=== PATIENT | male | born 1995 | race Caucasian/White ===

== ENCOUNTER 2018-11-02 07:53 | Inpatient (IN) | payer BC ==
[2018-11-02] MEDS ORDERED: ONDANSETRON 4 MG/2 ML VIAL ONE ×2 (08:11→10:35)
[2018-11-02] MEDS ORDERED: ONDANSETRON 4 MG/2 ML VIAL IVP ONE ×2 (08:13→10:44)
[2018-11-02] MEDS ORDERED: NS 1,000 ML IV ONE ×3 (08:22→09:50)
[2018-11-02 08:34] LABS: PLATELET COUNT 334 10^3/uL (150-400)
--- NOTE | 2018-11-02 08:35 | EDPHY ---
H & P Time Seen by Provider: 11/02/18 08:22 HPI/ROS: Chief complaint. Nausea and vomiting, elevated blood sugar HPI. Patient is 23-year-old male insulin-dependent diabetic began to have nausea vomiting last night. Unable to keep fluids down. He thought it was initially acid reflux. He does have sick contacts of his girlfriend over the weekend. Patient's blood sugar last night was 400. He has adjusted his insulin pump. He has crampy abdominal pain that comes and goes through the night. Crampy abdominal pain was better after drinking Sprite. No diarrhea. No fever. No chest discomfort or trouble breathing ROS 10 systems were reviewed and negative with the exception of the elements mentioned in the history of present illness Past Medical/Surgical History: Insulin-dependent diabetes, V-tach with ablation Social History: Single, nonsmoker, no alcohol Smoking Status: Former smoker Physical Exam: General Appearance: Alert well-developed male mild distress. Vital signs are stable Eyes: Pupils equal and round no pallor or injection. ENT, mucous membranes are dry. Pharynx without injection Respiratory: There are no retractions, lungs are clear to auscultation. Cardiovascular: Regular rate and rhythm. Gastrointestinal: Abdomen is soft and nontender, no masses, bowel sounds normal. Neurological: Awake and alert, sensory and motor exams grossly normal. Skin: Warm and dry, no rashes. Musculoskeletal: Neck is supple nontender. Extremities symmetrical, full range of motion. Psychiatric: Patient is oriented X 3, there is no agitation. Constitutional: Initial Vital Signs Temperature (C) 36.5 C 11/02/18 07:56 Heart Rate 87 11/02/18 07:56 Respiratory Rate 18 11/02/18 07:56 Blood Pressure 127/79 H 11/02/18 07:56 O2 Sat (%) 100 11/02/18 07:56 O2 Delivery Mode Room Air Allergies/Adverse Reactions: No Known Allergies Allergy (Verified 11/02/18 07:55) Home Medications: Medication Instructions Recorded Insulin Pump, Patient Own 1 ea MISC AD 09/07/15 Esomeprazole Magnesium [Nexium 20 mg PO DAILY PRN 11/02/18 24Hr] Herbals/Supplements -Info Only 1 ea PO DAILY 11/02/18 Insulin Glargine [Lantus] 24 unit SC AD 11/02/18 Multivitamins [Multivitamin (*)] 1 each PO DAILY 11/02/18 Medical Decision Making - Diagnostics EKG Interpretation: EKG interpreted by me shows normal sinus rhythm normal interval and axis. QRS is normal there is no significant ST elevation or depression. No arrhythmia. The rate is 88 Imaging Results: Imaging Impressions Chest X-Ray 11/02/18 10:42 Impression: Clear lungs. Normal portable chest. Procedures: IV normal saline. DKA protocol. Zofran nausea ED Course/Re-evaluation: Serial evaluations patient has blood sugar continues to be high. Initially we left him on his pump and let the patient do some adjustments to his insulin. However both his beta hydroxybutyrate and blood sugar elevated. I believe this is early DKA. I consulted discussed the case with Dr. Kelley, hospitalist, who agrees to the admission Patient also had an episode of severe arm and back pain. Etiology of this is unclear. Chest x-ray and EKG were unremarkable. Possible rhabdomyolysis Differential Diagnosis: Vomiting illness with early DKA. - Data Points Laboratory Results: Laboratory Results 11/02/18 08:10 11/02/18 10:25 11/02/18 11/02/18 11/02/18 10:59 10:25 10:25 WBC RBC Hgb POC Hgb 16.7 gm/dL gm/dL (13.7-17.5) Hct POC Hct 49 % % (40-51) MCV MCH MCHC RDW Plt Count MPV Neut % (Auto) Lymph % (Auto) [place] % (Auto) Eos % (Auto) Baso % (Auto) Nucleat RBC Rel Count Absolute Neuts (auto) Absolute Lymphs (auto) Absolute Monos (auto) Absolute Eos (auto) Absolute Basos (auto) Absolute Nucleated RBC Immature Gran % Immature Gran # Puncture Site VENOUS Patient Temperature 37.0 DEGREES DEGREES VBG pH 7.38 (7.31-7.42) VBG HCO3 18 mEQ/L L mEQ/L (22-26) VBG Total CO2 19 mEq/L L mEq/L (21-27) VBG O2 Saturation 98 % H % (65-75) VBG Base Excess -5.7 mEq/L L mEq/L (-2.5-2.5) Mixed VBG pCO2 31 mmHg L mmHg (40-44) Mixed VBG pO2 132 mmHG H mmHG (35-40) POC Sodium 136 mEq/L mEq/L (135-145) Sodium 136 mEq/L mEq/L (135-145) POC Potassium 4.6 mEq/L mEq/L (3.3-5.0) Potassium 4.6 mEq/L mEq/L (3.5-5.2) POC Chloride 102 mEq/L mEq/L (97-110) Chloride 102 mEq/L mEq/L (97-110) Carbon Dioxide 18 mEq/l L mEq/l (22-31) POC Total CO2 16 mEq/L L mEq/L (22-31) Anion Gap 16 mEq/L H mEq/L (6-14) POC BUN 21 mg/dL mg/dL (7-23) BUN 20 mg/dL mg/dL (7-23) Creatinine 0.9 mg/dL mg/dL (0.7-1.3) POC Creatinine 0.9 mg/dL mg/dL (0.7-1.3) Estimated GFR > 60 Glucose 339 mg/dL H mg/dL (70-100) POC Glucose 404 mg/dL H mg/dL (70-100) Calcium 8.4 mg/dL L mg/dL (8.5-10.4) Creatine Kinase 207 IU/L IU/L (0-224) Beta-Hydroxybutyrate 4.27 mmol/L H mmol/L (0.02-0.27) 11/02/18 11/02/18 11/02/18 09:23 09:20 08:21 WBC RBC Hgb POC Hgb 16.3 gm/dL gm/dL 19.7 gm/dL H gm/dL (13.7-17.5) (13.7-17.5) Hct POC Hct 48 % % 58 % H % (40-51) (40-51) MCV MCH MCHC RDW Plt Count MPV Neut % (Auto) Lymph % (Auto) [place] % (Auto) Eos % (Auto) Baso % (Auto) Nucleat RBC Rel Count Absolute Neuts (auto) Absolute Lymphs (auto) Absolute Monos (auto) Absolute Eos (auto) Absolute Basos (auto) Absolute Nucleated RBC Immature Gran % Immature Gran # Puncture Site VENOUS Patient Temperature 37.0 DEGREES DEGREES VBG pH 7.39 (7.31-7.42) VBG HCO3 21 mEQ/L L mEQ/L (22-26) VBG Total CO2 22 mEq/L mEq/L (21-27) VBG O2 Saturation 99 % H % (65-75) VBG Base Excess -3.0 mEq/L L mEq/L (-2.5-2.5) Mixed VBG pCO2 36 mmHg L mmHg (40-44) Mixed VBG pO2 138 mmHG H mmHG (35-40) POC Sodium 139 mEq/L mEq/L 139 mEq/L mEq/L (135-145) (135-145) Sodium POC Potassium 4.2 mEq/L mEq/L 3.9 mEq/L mEq/L (3.3-5.0) (3.3-5.0) Potassium POC Chloride 101 mEq/L mEq/L 99 mEq/L mEq/L (97-110) (97-110) Chloride Carbon Dioxide POC Total CO2 23 mEq/L mEq/L 22 mEq/L mEq/L (22-31) (22-31) Anion Gap POC BUN 20 mg/dL mg/dL 21 mg/dL mg/dL (7-23) (7-23) BUN Creatinine POC Creatinine 0.9 mg/dL mg/dL 1.0 mg/dL mg/dL (0.7-1.3) (0.7-1.3) Estimated GFR Glucose POC Glucose 335 mg/dL H mg/dL 389 mg/dL H mg/dL (70-100) (70-100) Calcium Creatine Kinase Beta-Hydroxybutyrate 11/02/18 11/02/18 11/02/18 08:10 08:10 08:10 WBC 14.13 10^3/uL H 10^3/uL (3.80-9.50) RBC 6.15 10^6/uL 10^6/uL (4.40-6.38) Hgb 18.8 g/dL H g/dL (13.7-17.5) POC Hgb Hct 54.9 % H % (40.0-51.0) POC Hct MCV 89.3 fL fL (81.5-99.8) MCH 30.6 pg pg (27.9-34.1) MCHC 34.2 g/dL g/dL (32.4-36.7) RDW 11.8 % % (11.5-15.2) Plt Count 334 10^3/uL 10^3/uL (150-400) MPV 9.5 fL fL (8.7-11.7) Neut % (Auto) 87.5 % H % (39.3-74.2) Lymph % (Auto) 5.2 % L % (15.0-45.0) [place] % (Auto) 5.8 % % (4.5-13.0) Eos % (Auto) 0.8 % % (0.6-7.6) Baso % (Auto) 0.3 % % (0.3-1.7) Nucleat RBC Rel Count 0.0 % % (0.0-0.2) Absolute Neuts (auto) 12.37 10^3/uL H 10^3/uL (1.70-6.50) Absolute Lymphs (auto) 0.74 10^3/uL L 10^3/uL (1.00-3.00) Absolute Monos (auto) 0.82 10^3/uL H 10^3/uL (0.30-0.80) Absolute Eos (auto) 0.11 10^3/uL 10^3/uL (0.03-0.40) Absolute Basos (auto) 0.04 10^3/uL 10^3/uL (0.02-0.10) Absolute Nucleated RBC 0.00 10^3/uL 10^3/uL (0-0.01) Immature Gran % 0.4 % % (0.0-1.1) Immature Gran # 0.05 10^3/uL 10^3/uL (0.00-0.10) Puncture Site VENOUS Patient Temperature 37.0 DEGREES DEGREES VBG pH 7.45 H (7.31-7.42) VBG HCO3 22 mEQ/L mEQ/L (22-26) VBG Total CO2 23 mEq/L mEq/L (21-27) VBG O2 Saturation 89 % H % (65-75) VBG Base Excess -0.3 mEq/L mEq/L (-2.5-2.5) Mixed VBG pCO2 32 mmHg L mmHg (40-44) Mixed VBG pO2 55 mmHG H mmHG (35-40) POC Sodium Sodium POC Potassium Potassium POC Chloride Chloride Carbon Dioxide POC Total CO2 Anion Gap POC BUN BUN Creatinine POC Creatinine Estimated GFR Glucose POC Glucose Calcium Creatine Kinase Beta-Hydroxybutyrate 3.47 mmol/L H mmol/L (0.02-0.27) Medications Given: Discontinued Medications Sodium Chloride (Ns) 1,000 mls @ 1,000 mls/hr IV EDNOW ONE PRN Reason: Protocol Stop: 11/02/18 09:21 Last Admin: 11/02/18 08:31 Dose: 1,000 mls Sodium Chloride (Ns) 1,000 mls @ 1,000 mls/hr IV EDNOW ONE PRN Reason: Protocol Stop: 11/02/18 10:21 Last Admin: 11/02/18 08:48 Dose: 1,000 mls Sodium Chloride (Ns) 1,000 mls @ 0 mls/hr IV ONCE ONE; Wide Open PRN Reason: Protocol Stop: 11/02/18 09:51 Last Admin: 11/02/18 08:45 Dose: 1,000 mls Insulin Human Regular 100 unit / Miscellaneous Medication 1 ea/ Sodium Chloride 101 mls @ 0 mls/hr IV EDNOW ONE; Per Protocol PRN Reason: Protocol Stop: 11/02/18 11:18 Last Admin: 11/02/18 11:57 Dose: 101 mls Morphine Sulfate (Morphine) 6 mg IVP EDNOW ONE Stop: 11/02/18 10:43 Last Admin: 11/02/18 10:51 Dose: 6 mg Ondansetron HCl (Zofran) 4 mg IVP EDNOW ONE Stop: 11/02/18 08:14 Last Admin: 11/02/18 08:16 Dose: 4 mg Ondansetron HCl (Zofran) 4 mg IVP EDNOW ONE Stop: 11/02/18 10:45 Last Admin: 11/02/18 10:51 Dose: 4 mg Point of Care Test Results: Chemistry 11/02/18 11/02/18 11/02/18 10:59 09:23 08:21 POC Sodium 136 mEq/L mEq/L 139 mEq/L mEq/L 139 mEq/L mEq/L (135-145) (135-145) (135-145) POC Potassium 4.6 mEq/L mEq/L 4.2 mEq/L mEq/L 3.9 mEq/L mEq/L (3.3-5.0) (3.3-5.0) (3.3-5.0) POC Chloride 102 mEq/L mEq/L 101 mEq/L mEq/L 99 mEq/L mEq/L (97-110) (97-110) (97-110) POC Total CO2 16 mEq/L L mEq/L 23 mEq/L mEq/L 22 mEq/L mEq/L (22-31) (22-31) (22-31) POC BUN 21 mg/dL mg/dL 20 mg/dL mg/dL 21 mg/dL mg/dL (7-23) (7-23) (7-23) POC Creatinine 0.9 mg/dL mg/dL 0.9 mg/dL mg/dL 1.0 mg/dL mg/dL (0.7-1.3) (0.7-1.3) (0.7-1.3) POC Glucose 404 mg/dL H mg/dL 335 mg/dL H mg/dL 389 mg/dL H mg/dL (70-100) (70-100) (70-100) ISTAT H&H 11/02/18 11/02/18 11/02/18 10:59 09:23 08:21 POC Hgb 16.7 gm/dL gm/dL 16.3 gm/dL gm/dL 19.7 gm/dL H gm/dL (13.7-17.5) (13.7-17.5) (13.7-17.5) POC Hct 49 % % 48 % % 58 % H % (40-51) (40-51) (40-51) Departure - Departure Disposition: [facility] Acute Clinical Impression: Diabetic ketoacidosis Qualifiers: Diabetes mellitus type: type 1 Diabetes mellitus complication detail: without coma Qualified Code(s): E10.10 - Type 1 diabetes mellitus with ketoacidosis without coma Condition: Fair
[2018-11-02 10:52] LABS: CREATINE KINASE 207 IU/L (0-224)
[2018-11-02] MEDS ORDERED: INSULIN REGULAR HUMAN 100 UNIT, COSIGN. REQUIRED 1 EA in NS 100 ML IV ONE (11:17)
[2018-11-02] MEDS ORDERED: ONDANSETRON DISINTEGRATING 4 MG TAB PO PRN (11:57)
[2018-11-02] MEDS ORDERED: ONDANSETRON 4 MG/2 ML VIAL IVP PRN (11:57)
[2018-11-02] MEDS ORDERED: ACETAMINOPHEN 325 MG TAB PO PRN (11:57)
--- NOTE | 2018-11-02 12:58 | PDGENHP ---
History and Physical - Chief Complaint N/V, High BG - History of Present Illness Brando Lowe is a 23 yo M with a PMHx of Type 1 DM on insulin pump who presents to [facility] for elevated blood sugars and n/v. He reports that he had acute onset nausea with multiple episodes of vomiting last evening. He denies any symptoms prior to that including chest pain, SOB, URI symptoms including cough, congestion, sore throat, f/c, edema, d/c. He was unable to keep PO intake down. He checked his BG which was 400. He adjusted his insulin pump but was unable to get it <300. He also reports some crampy abdominal pain that intermittently occurred overnight. He reports muscle aches in the ED as well. History Information - Allergies/Home Medication List Allergies/Adverse Reactions: No Known Allergies Allergy (Verified 11/02/18 07:55) Home Medications: Insulin Pump, Patient Own 1 ea MISC AD 09/07/15 [Last Taken Unknown] Esomeprazole Magnesium [Nexium 24Hr] 20 mg PO DAILY PRN 11/02/18 [Last Taken Unknown] Herbals/Supplements -Info Only 1 ea PO DAILY 11/02/18 [Last Taken Unknown] Insulin Glargine [Lantus] 24 unit SC AD 11/02/18 [Last Taken Unknown] Multivitamins [Multivitamin (*)] 1 each PO DAILY 11/02/18 [Last Taken Unknown] I have personally reviewed and updated: family history, medical history, social history, surgical history - Past Medical History diabetes type 1 - Surgical History Reports: no pertinent surgical hx - Family History Positive for: non-pertinent - Social History Smoking Status: Former smoker Review of Systems Review of Systems: ROS: 10pt was reviewed & negative except for what was stated in HPI & below Physical Exam Physical Exam: Temp Pulse Resp BP Pulse Ox 36.5 C 101 H 20 141/89 H 92 11/02/18 07:56 11/02/18 10:50 11/02/18 10:50 11/02/18 10:50 11/02/18 10:50 Constitutional: no apparent distress Eyes: PERRL Ears, Nose, Mouth, Throat: moist mucous membranes Cardiovascular: regular rate and rhythym Respiratory: no respiratory distress Gastrointestinal: soft, non-tender abdomen Skin: warm Musculoskeletal: full muscle strength Neurologic: AAOx3 Psychiatric: interacting appropriately Lab Data & Imaging Review 11/02/18 08:10 11/02/18 12:54 WBC 14.13 10^3/uL (3.80-9.50) H 11/02/18 08:10 RBC 6.15 10^6/uL (4.40-6.38) 11/02/18 08:10 Hgb 18.8 g/dL (13.7-17.5) H 11/02/18 08:10 POC Hgb 17.3 gm/dL (13.7-17.5) 11/02/18 12:12 Hct 54.9 % (40.0-51.0) H 11/02/18 08:10 POC Hct 51 % (40-51) 11/02/18 12:12 MCV 89.3 fL (81.5-99.8) 11/02/18 08:10 MCH 30.6 pg (27.9-34.1) 11/02/18 08:10 MCHC 34.2 g/dL (32.4-36.7) 11/02/18 08:10 RDW 11.8 % (11.5-15.2) 11/02/18 08:10 Plt Count 334 10^3/uL (150-400) 11/02/18 08:10 MPV 9.5 fL (8.7-11.7) 11/02/18 08:10 Neut % (Auto) 87.5 % (39.3-74.2) H 11/02/18 08:10 Lymph % (Auto) 5.2 % (15.0-45.0) L 11/02/18 08:10 [place] % (Auto) 5.8 % (4.5-13.0) 11/02/18 08:10 Eos % (Auto) 0.8 % (0.6-7.6) 11/02/18 08:10 Baso % (Auto) 0.3 % (0.3-1.7) 11/02/18 08:10 Nucleat RBC Rel Count 0.0 % (0.0-0.2) 11/02/18 08:10 Absolute Neuts (auto) 12.37 10^3/uL (1.70-6.50) H 11/02/18 08:10 Absolute Lymphs (auto) 0.74 10^3/uL (1.00-3.00) L 11/02/18 08:10 Absolute Monos (auto) 0.82 10^3/uL (0.30-0.80) H 11/02/18 08:10 Absolute Eos (auto) 0.11 10^3/uL (0.03-0.40) 11/02/18 08:10 Absolute Basos (auto) 0.04 10^3/uL (0.02-0.10) 11/02/18 08:10 Absolute Nucleated RBC 0.00 10^3/uL (0-0.01) 11/02/18 08:10 Immature Gran % 0.4 % (0.0-1.1) 11/02/18 08:10 Immature Gran # 0.05 10^3/uL (0.00-0.10) 11/02/18 08:10 Puncture Site VENOUS 11/02/18 10:25 Patient Temperature 37.0 DEGREES 11/02/18 10:25 VBG pH 7.38 (7.31-7.42) 11/02/18 10:25 VBG HCO3 18 mEQ/L (22-26) L 11/02/18 10:25 VBG Total CO2 19 mEq/L (21-27) L 11/02/18 10:25 VBG O2 Saturation 98 % (65-75) H 11/02/18 10:25 VBG Base Excess -5.7 mEq/L (-2.5-2.5) L 11/02/18 10:25 Mixed VBG pCO2 31 mmHg (40-44) L 11/02/18 10:25 Mixed VBG pO2 132 mmHG (35-40) H 11/02/18 10:25 POC Sodium 136 mEq/L (135-145) 11/02/18 12:12 Sodium 136 mEq/L (135-145) 11/02/18 10:25 POC Potassium 4.8 mEq/L (3.3-5.0) 11/02/18 12:12 Potassium 4.6 mEq/L (3.5-5.2) 11/02/18 10:25 POC Chloride 102 mEq/L (97-110) 11/02/18 12:12 Chloride 102 mEq/L (97-110) 11/02/18 10:25 Carbon Dioxide 18 mEq/l (22-31) L 11/02/18 10:25 POC Total CO2 17 mEq/L (22-31) L 11/02/18 12:12 Anion Gap 16 mEq/L (6-14) H 11/02/18 10:25 POC BUN 19 mg/dL (7-23) 11/02/18 12:12 BUN 20 mg/dL (7-23) 11/02/18 10:25 Creatinine 0.9 mg/dL (0.7-1.3) 11/02/18 10:25 POC Creatinine 0.9 mg/dL (0.7-1.3) 11/02/18 12:12 Estimated GFR > 60 11/02/18 10:25 Glucose 339 mg/dL (70-100) H 11/02/18 10:25 POC Glucose 440 mg/dL (70-100) H 11/02/18 12:12 Calcium 8.4 mg/dL (8.5-10.4) L 11/02/18 10:25 Creatine Kinase 207 IU/L (0-224) 11/02/18 10:25 Beta-Hydroxybutyrate 4.27 mmol/L (0.02-0.27) H 11/02/18 10:25 Assessment & Plan Assessment: DKA - Presenting with n/v, abdominal pain, BG >400 - On admission, AG 16, BG 404, B-Hydroxybutyrate 4.27, VBG with pH 7.38, Bicarb 18 - S/p 3L IVF in ED and initiated on DKA protocol - Continue to monitor labs, IVF, insulin gtt per DKA protocol - Transition back to insulin pump with basal and bolus dosing when AG closed, BG <200 - NPO for now until able to transition off of Insulin gtt Nausea/Vomiting - In setting of DKA as above - Lipase WNL on admission, abdominal exam benign - Anti-emetics PRN Leukocytosis - WBC 14.1 on admission - DKA as above, no other infectious symptoms noted - Continue to monitor CBC T1DM - DKA management as above - Restart home insulin pump upon resolution of DKA FEN: S/p IVF, IVF per DKA protocol, NPO DVT PPx: Low risk, SCDs Code: FULL Dispo: Admit to ICU for management of DKA
--- NOTE | 2018-11-02 15:10 | CPEKG ---
Test Reason : OPEN Blood Pressure : / mmHG Vent. Rate : 088 BPM Atrial Rate : 089 BPM P-R Int : 130 ms QRS Dur : 087 ms QT Int : 372 ms P-R-T Axes : 074 050 022 degrees QTc Int : 450 ms Sinus rhythm Minimal ST depression, inferior leads Confirmed by Jackie Roche ([id number]) on 11/02/2018 3:09:47 PM Referred By: JACKIE ROCHE Confirmed By:Jackie Roche
[2018-11-02] MEDS ORDERED: RN:ENTER POTASSIUM ICU PROTOCOL ON WORKLIST MISC ONE (16:00)
[2018-11-02] MEDS ORDERED: D50W 25 GM/50 ML SYR IVP PRN ×2 (16:00→17:36)
[2018-11-02] MEDS ORDERED: D10W 1,000 ML IV SCH (16:00)
[2018-11-02] MEDS ORDERED: NS 1,000 ML IV SCH (16:00)
[2018-11-02] MEDS ORDERED: INSULIN REGULAR HUMAN 100 UNIT in NS 100 ML IV SCH (16:00)
[2018-11-02] MEDS ORDERED: INSULIN PUMP, PATIENT OWN 1 EA MISC SCH ×2 (17:45→18:00)
--- NOTE | 2018-11-02 20:56 | PDMN ---
Medical Necessity Medical necessity: Pt meets inpt criteria per MD order and MCG M-130, Diabetes, A-2 days. 23 y/o w/type 1 DM on insulin pump presented to ED w/elevated bl sugars (>400), N/V, abd cramping, and muscle aches, admitted w/DKA w/anion gap 16, B-hydroxybutyrate 4.27. ICU care, NPO, IVF, insulin gtt per DKA protocol, monitor labs, antiemetics for N/V, anticipate>2MN for ongoing management of above.
[2018-11-03] MEDS ORDERED: POTASSIUM CL 20 MEQ TAB PO ONE ×3 (00:45→10:00)
[2018-11-03] MEDS ORDERED: D5W NS 1,000 ML IV SCH (09:00)
[2018-11-03 10:20] VITALS: BP 97/54
--- NOTE | 2018-11-03 19:33 | GDS ---
[f rep st] DISCHARGE SUMMARY CONSULTS: None applicable. PROCEDURE: None applicable. FOLLOWUP: PCP. HOSPITAL COURSE PROBLEM LIST: Diabetic ketoacidosis. Patient presented after acute onset of nausea and vomiting in the setting of hyperglycemia with a blood glucose of 400. On admission, had an anion gap of 18, blood glucose in the 400s, and elevated beta hydroxybutyrate. He was started on DKA prot ocol. Overnight, there was a lapse in his insulin pump, after being transitioned off the insulin dri p. He needed a new cartridge. He was restarted on an insulin drip. This morning, he got his insuli n cartridge from his house. Insulin pump was working appropriately. Basal insulin was increased. T here was resolution of DKA and patient was discharged with followup to PCP. Time spent on discharge was greater than 35 minutes, with greater than 50% of time spent on patient c vic and education. /[id number]/MODL
--- NOTE | 2018-11-03 20:24 | ASMTCMCOM ---
CM Note CM Note Notes: Pt discussed in rounds and met with him. Pt is a 23 year old diabetic admitted with nausea, vomiting and high blood sugar greater 400. Pt is established with an Insulin pump at home and has no needs. Pt will discharge home with his girlfriend. Pts Mother is also a good resource. CM available for needs. Plan: Discharge Home independently. Date Signed: 11/03/2018 08:23 PM Electronically Signed By:Kassandra Beyer
== END 2018-11-03 13:30 | disposition home or self-care (01) | DRG 639 ==
LOC: F2N 13:40
PROVIDERS: ADMIT Internal Medicine; ATTEND Internal Medicine
DX: E10.10 Type 1 diabetes mellitus with ketoacidosis without coma (principal); Z79.4 Long term (current) use of insulin; Z96.41 Presence of insulin pump (external) (internal); Z87.891 Personal history of nicotine dependence
CPT/HCPCS: 82435-PO; 82565-PO; 82947-PO; 82947-QW; 83605-ER; 84132-PO; 84295-PO; 84520-PO; 85014-ER; 96365; 96366; J1815; J2270; J2405

== ENCOUNTER 2018-12-09 19:19 | Observation (INO) | payer BC ==
[2018-12-09] MEDS ORDERED: NS 1,000 ML IV ONE ×2 (19:32→20:33)
--- NOTE | 2018-12-09 19:34 | EDPHY ---
H & P Time Seen by Provider: 12/09/18 19:26 HPI/ROS: Chief complaint. High blood sugar HPI. Patient is 23-year-old male insulin-dependent type 1 with high blood sugar that began yesterday. He had vomiting today and unable to keep fluids down. No fever or illness. He does have an insulin pump which seems to be working but does not seem to be controlling his blood sugars. He has arm and back pain which she has had previously with DKA. He has continued to have nausea and vomiting. ROS 10 systems were reviewed and negative with the exception of the elements mentioned in the history of present illness Past Medical/Surgical History: V-tach with ablation, insulin-dependent diabetes Social History: Single, nonsmoker, no alcohol Smoking Status: Former smoker Physical Exam: General Appearance: Alert well-developed male moderate distress vital signs stable Eyes: Pupils equal and round no pallor or injection. ENT, mucous membranes are dry Respiratory: No retractions. Lungs clear. Mild tachypnea Cardiovascular: Regular rate and rhythm. Gastrointestinal: Abdomen is soft and nontender, no masses, bowel sounds normal. Neurological: Awake and alert, sensory and motor exams grossly normal. Skin: Warm and dry, no rashes. Musculoskeletal: Neck is supple nontender. Extremities symmetrical, full range of motion. Psychiatric: Patient is oriented X 3, there is no agitation. Constitutional: Initial Vital Signs Temperature (C) 36.8 C 12/09/18 19:21 Heart Rate 79 12/09/18 19:21 Respiratory Rate 20 12/09/18 19:21 Blood Pressure 146/77 H 12/09/18 19:21 O2 Sat (%) 100 12/09/18 19:21 O2 Delivery Mode Room Air Allergies/Adverse Reactions: No Known Allergies Allergy (Verified 12/09/18 19:21) Home Medications: Medication Instructions Recorded Insulin Pump, Patient Own 1 ea MISC AD 09/07/15 Esomeprazole Magnesium [Nexium 20 mg PO DAILY PRN 11/02/18 24Hr] Herbals/Supplements -Info Only 1 ea PO DAILY 11/02/18 Insulin Glargine [Lantus] 24 unit SC AD 11/02/18 Multivitamins [Multivitamin (*)] 1 each PO DAILY 11/02/18 Medical Decision Making - Diagnostics EKG Interpretation: EKG interpreted by me shows normal sinus rhythm normal interval and axis. LVH by voltage criteria with ST elevations slightly in anterior septal leads likely normal early repolarization pattern. Heart rate is 84 Imaging Results: One-view chest x-ray interpreted by me is normal Procedures: IV normal saline. Zofran for nausea. Point of care glucose 425. Point of care potassium is 4.7 Venous pH 7.30 DKA protocol. Insulin drip ED Course/Re-evaluation: Serial evaluations patient remained stable. Patient and I discussed treatment plan including recommendation for admission. He expresses understanding and agreement I consulted and discussed the case with , hospitalist, who agrees to the admission Differential Diagnosis: DKA with vomiting and volume depletion. Insulin-dependent diabetic. No source of infection identified. Plan insulin drip and ICU admit - Data Points Laboratory Results: 12/09/18 12/09/18 12/09/18 19:40 19:30 19:30 POC Hgb 19.4 gm/dL H gm/dL (13.7-17.5) POC Hct 57 % H % (40-51) Puncture Site Patient Temperature VBG pH VBG HCO3 VBG Total CO2 VBG O2 Saturation VBG Base Excess Mixed VBG pCO2 Mixed VBG pO2 POC Sodium 134 mEq/L L mEq/L (135-145) Sodium Pending POC Potassium 4.7 mEq/L mEq/L (3.3-5.0) Potassium Pending POC Chloride 98 mEq/L mEq/L (97-110) Chloride Pending Carbon Dioxide Pending POC Total CO2 16 mEq/L L mEq/L (22-31) Anion Gap Pending POC BUN 25 mg/dL H mg/dL (7-23) BUN Pending Creatinine Pending POC Creatinine 1.0 mg/dL mg/dL (0.7-1.3) Estimated GFR Pending Glucose Pending POC Glucose 425 mg/dL H mg/dL (70-100) Calcium Pending Phosphorus 5.0 mg/dL H mg/dL (2.5-4.5) Magnesium 2.3 mg/dL mg/dL (1.6-2.3) Beta-Hydroxybutyrate Pending Pending 12/09/18 19:30 POC Hgb POC Hct Puncture Site VENOUS Patient Temperature 37.0 DEGREES DEGREES VBG pH 7.30 L (7.31-7.42) VBG HCO3 14 mEQ/L L mEQ/L (22-26) VBG Total CO2 15 mEq/L L mEq/L (21-27) VBG O2 Saturation 71 % % (65-75) VBG Base Excess -11.0 mEq/L L mEq/L (-2.5-2.5) Mixed VBG pCO2 29 mmHg L mmHg (40-44) Mixed VBG pO2 42 mmHG H mmHG (35-40) POC Sodium Sodium POC Potassium Potassium POC Chloride Chloride Carbon Dioxide POC Total CO2 Anion Gap POC BUN BUN Creatinine POC Creatinine Estimated GFR Glucose POC Glucose Calcium Phosphorus Magnesium Beta-Hydroxybutyrate Medications Given: Sodium Chloride (Ns) 1,000 mls @ 1,000 mls/hr IV EDNOW ONE PRN Reason: Protocol Stop: 12/09/18 20:31 Last Admin: 12/09/18 19:41 Dose: 1,000 mls Sodium Chloride (Ns) 1,000 mls @ 1,000 mls/hr IV EDNOW ONE PRN Reason: Protocol Stop: 12/09/18 21:32 Last Admin: 12/09/18 19:42 Dose: 1,000 mls Discontinued Medications Ondansetron HCl (Zofran) 4 mg IVP EDNOW ONE Stop: 12/09/18 19:38 Last Admin: 12/09/18 19:41 Dose: 4 mg Point of Care Test Results: Chemistry 12/09/18 19:40 POC Sodium 134 mEq/L L mEq/L (135-145) POC Potassium 4.7 mEq/L mEq/L (3.3-5.0) POC Chloride 98 mEq/L mEq/L (97-110) POC Total CO2 16 mEq/L L mEq/L (22-31) POC BUN 25 mg/dL H mg/dL (7-23) POC Creatinine 1.0 mg/dL mg/dL (0.7-1.3) POC Glucose 425 mg/dL H mg/dL (70-100) ISTAT H&H 12/09/18 19:40 POC Hgb 19.4 gm/dL H gm/dL (13.7-17.5) POC Hct 57 % H % (40-51) Departure - Departure Disposition: [facility] Inpatient Acute Clinical Impression: Diabetic ketoacidosis Qualifiers: Diabetes mellitus type: type 1 Diabetes mellitus complication detail: without coma Qualified Code(s): E10.10 - Type 1 diabetes mellitus with ketoacidosis without coma Condition: Fair
[2018-12-09] MEDS ORDERED: ONDANSETRON 4 MG/2 ML VIAL IVP ONE (19:37)
[2018-12-09] MEDS ORDERED: INSULIN REGULAR HUMAN 100 UNIT, COSIGN. REQUIRED 1 EA in NS 100 ML IV ONE (19:51)
[2018-12-09] MEDS ORDERED: POTASSIUM CL 20 MEQ PKT PO ONE (20:15)
--- NOTE | 2018-12-09 20:47 | HOSPPROG ---
Hospitalist Progress Note Assessment/Plan: 23M with DM1 presents in mild DKA comfortable, on his phone RRR, no MRG abd S, NT, ND gluc 425 bicarb 16 A/P: # DKA - no clear etiology, this is the second in 1 month without previously being in DKA - check UTox - IV insulin, follow glucs, lytes closely Patient seen and examined. Discussed with Erica Dodson, BIOLOGICAL TECHNICAL OFFICER - I agree with her H&P. Objective: Vital Signs Temp Pulse Resp BP Pulse Ox 36.8 C 79 20 146/77 H 100 12/09/18 19:21 12/09/18 19:21 12/09/18 19:21 12/09/18 19:21 12/09/18 19:21 ICD10 Worksheet Patient Problems: Problems Problem Status Onset Diabetic ketoacidosis Acute
--- NOTE | 2018-12-09 20:49 | CPEKG ---
Test Reason : OPEN Blood Pressure : / mmHG Vent. Rate : 084 BPM Atrial Rate : 084 BPM P-R Int : 140 ms QRS Dur : 110 ms QT Int : 397 ms P-R-T Axes : 090 076 054 degrees QTc Int : 470 ms Sinus rhythm Right atrial enlargement Probable left ventricular hypertrophy ST elev, probable normal early repol pattern Borderline prolonged QT interval Confirmed by Jackie Roche ([id number]) on 12/09/2018 8:49:02 PM Referred By: JACKIE ROCHE Confirmed By:Jackie Roche
--- NOTE | 2018-12-09 21:40 | PDGENHP ---
History and Physical - Chief Complaint Diabetic ketoacidosis - History of Present Illness This is a 23-year-old male who is type 1 diabetes and has an insulin pump with basal rate 1.2 every hour and a carb ratio of 1:8 presenting with mild diabetic ketoacidosis, this is his 2nd time presenting in a similar fashion since October 2018. He reports drinking 3 beers last night and having a snack but did not bolus himself, he woke up and felt horrible try to drink water but vomited several times. He attempted to control his increasingly elevated blood sugars with no success. He has being admitted for mild diabetic ketoacidosis. Denies chest pain, palpitations, dysuria, constipation or diarrhea. 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 White blood cell: 10.66 Hemoglobin hematocrit: 18.4 and 54 Blood gas levels PH: 7.30 Bicarb: 14 Total carbon dioxide: 15 Temp Pulse Resp BP Pulse Ox 36.6 C 80 18 127/64 H 99 12/09/18 21:04 12/09/18 21:04 12/09/18 21:04 12/09/18 21:04 12/09/18 21:04 Constitutional: uncomfortable Eyes: PERRL, anicteric sclera, EOMI Ears, Nose, Mouth, Throat: moist mucous membranes, hearing normal, ears appear normal, no oral mucosal ulcers Cardiovascular: regular rate and rhythym, no murmur, rub, or gallop, No edema Peripheral Pulses: 2+: dorsalis-pedis (R), dorsalis-pedis (L) Respiratory: no respiratory distress, no rales or rhonchi, clear to auscultation Gastrointestinal: normoactive bowel sounds, soft, non-tender abdomen, no palpable masses Genitourinary: no bladder fullness, no bladder tenderness Skin: warm, normal color, no rashes or abrasions, no fluctuance, no induration, No mottled Musculoskeletal: full muscle strength, no muscle tenderness, normal joint ROM, no joint effusions Neurologic: AAOx3, sensation intact bilaterally, CN II-XII Intact Psychiatric: interacting appropriately, not anxious, not encephalopathic, thought process linear Lymph, Heme, Immunologic: no cervical LAD, no supraclavicular LAD Lab Data & Imaging Review 12/09/18 19:30 12/09/18 19:30 WBC 10.66 10^3/uL (3.80-9.50) H 12/09/18 19:30 POC Hgb 18.4 gm/dL (13.7-17.5) H 12/09/18 20:36 POC Hct 54 % (40-51) H 12/09/18 20:36 Puncture Site VENOUS 12/09/18 19:30 Patient Temperature 37.0 DEGREES 12/09/18 19:30 VBG pH 7.30 (7.31-7.42) L 12/09/18 19:30 VBG HCO3 14 mEQ/L (22-26) L 12/09/18 19:30 VBG Total CO2 15 mEq/L (21-27) L 12/09/18 19:30 VBG O2 Saturation 71 % (65-75) 12/09/18 19:30 VBG Base Excess -11.0 mEq/L (-2.5-2.5) L 12/09/18 19:30 Mixed VBG pCO2 29 mmHg (40-44) L 12/09/18 19:30 Mixed VBG pO2 42 mmHG (35-40) H 12/09/18 19:30 POC Sodium 136 mEq/L (135-145) 12/09/18 20:36 POC Potassium 4.9 mEq/L (3.3-5.0) 12/09/18 20:36 POC Chloride 101 mEq/L (97-110) 12/09/18 20:36 POC Total CO2 16 mEq/L (22-31) L 12/09/18 20:36 POC BUN 24 mg/dL (7-23) H 12/09/18 20:36 POC Creatinine 0.9 mg/dL (0.7-1.3) 12/09/18 20:36 POC Glucose 400 mg/dL (70-100) H 12/09/18 20:36 Phosphorus 5.0 mg/dL (2.5-4.5) H 12/09/18 19:30 Magnesium 2.3 mg/dL (1.6-2.3) 12/09/18 19:30 Beta-Hydroxybutyrate 7.49 mmol/L (0.02-0.27) H 12/09/18 19:30 Assessment & Plan Plan: 23-year-old male presenting to the emergency room in diabetic ketoacidosis for the 2nd time within 1 month. His vital signs are the following: Blood pressure 146/77, heart rate 79, respirations 20, temperature 36.8 degrees, oxygen saturation 100% on room air. Diabetic ketoacidosis (Acute) -presenting with nausea vomiting, and blood sugar greater than 400 -continue to monitor labs, IV fluids, insulin drip per DKA protocol -transitioned to insulin pump with basal bolus dosing when bicarb is up to either 18 or 19 and blood sugar less than 200 -NPO for now until able to transition off insulin drip -tox screen pending Nausea and vomiting: See above, antiemetics p.r.n. Type 1 diabetes: restart home insulin pump upon resolution of DKA Diet: NPO Code: Full Dispo: admit to obs DVT ppx: Low risk, SCDs
[2018-12-09] MEDS ORDERED: NS 500 ML IV ONE ×2 (22:00→23:00)
[2018-12-09] MEDS ORDERED: INSULIN REGULAR HUMAN 100 UNIT in NS 100 ML IV SCH (22:30)
[2018-12-09] MEDS ORDERED: NS 1,000 ML IV SCH (22:30)
[2018-12-09] MEDS ORDERED: D50W 25 GM/50 ML SYR IVP PRN (22:30)
[2018-12-09] MEDS ORDERED: D10W 1,000 ML IV SCH (22:30)
[2018-12-09] MEDS ORDERED: RN:ENTER POTASSIUM ICU PROTOCOL ON WORKLIST MISC ONE (22:30)
[2018-12-10] MEDS ORDERED: D50W 25 GM/50 ML SYR IVP PRN (12:01)
[2018-12-10] MEDS ORDERED: ONDANSETRON 4 MG/2 ML VIAL IVP PRN (12:02)
[2018-12-10] MEDS ORDERED: ONDANSETRON 4 MG/2 ML VIAL ONE (12:02)
--- NOTE | 2018-12-10 12:04 | HOSPPROG ---
Hospitalist Progress Note Assessment/Plan: 23yo M with t1dm here with mild dka. #DKA: Resolved. Off insulin gtt and restart on home insulin pump. #Ongoing hyperglycemia: Insulin pump has malfunctioned. He does not have supplies to fix. - Start glargine 20u daily, SSI, achs checks - Give additional 500cc bolus - Stopped insulin pump #Nausea, vomiting: d/t elevated bg - Zofran prn #Type 1 diabetes: A1c 9%. 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 Dispo: Possibly dc later today on subQ insulin if BG controlled. Alternatively, if not controlled or not tolerating PO, will transfer to floor and keep until tomorrow. [facility] [place] [facility] supplies. Subjective: Ate last night, started on insulin pump. BG noted to be elevated in 300s this AM, now nauseated and vomiting. Insulin pump isn't working and he doesn't have supplies to fix it. Objective: Vital Signs Temp Pulse Resp BP Pulse Ox 36.3 C 96 14 114/59 L 94 12/10/18 11:38 12/10/18 11:38 12/10/18 11:38 12/10/18 11:38 12/10/18 11:38 Laboratory Results 12/10/18 03:55 12/09/18 12/10/18 12/11/18 05:59 05:59 05:59 Intake Total 7117 Output Total 2600 Balance 4517 - Physical Exam Constitutional: no apparent distress, appears nourished, not in pain Eyes: PERRL, anicteric sclera, EOMI Ears, Nose, Mouth, Throat: moist mucous membranes, hearing normal, ears appear normal, no oral mucosal ulcers Cardiovascular: regular rate and rhythym, no murmur, rub, or gallop, No edema Respiratory: no respiratory distress, no rales or rhonchi, clear to auscultation Gastrointestinal: normoactive bowel sounds, soft, non-tender abdomen, no palpable masses Genitourinary: no bladder fullness, no bladder tenderness, no renal bruits Skin: no rashes or abrasions, no fluctuance, no induration Musculoskeletal: full muscle strength, no muscle tenderness, normal joint ROM Neurologic: AAOx3, sensation intact bilaterally Psychiatric: interacting appropriately, not anxious, not encephalopathic, thought process linear ICD10 Worksheet Patient Problems: Problems Problem Status Onset Diabetic ketoacidosis Acute
[2018-12-10] MEDS ORDERED: NS 500 ML IV ONE (12:06)
[2018-12-10] MEDS ORDERED: INSULIN GLARGINE 100 UNITS/ML UNIT SC SCH (12:15)
[2018-12-10] MEDS: INSULIN LISPRO 100 UNIT/ML SC SCH ×2 (12:23→15:59)
[2018-12-10] MEDS ORDERED: NS 1,000 ML IV ONE (15:39)
[2018-12-10 16:38] VITALS: BP 115/63
--- NOTE | 2018-12-10 17:19 | ASMTCASEMG ---
Living Arrangements What is your living Answers: With Other (Not Family) arrangement? Who do you live with? Type Of Residence What kind of residence do Answers: Apartment you live in? Type of Residence Facility Name Notes: [employer] [facility] Discharge Plan Comments Coordination Status Comments Notes: Patient is a 23yo single male, [employer] student with Type 1 diabetes who comes to [facility] with diabetic ketoacidosis. Patient's insulin pump has not been working. Patient presented with nausea and vomiting and a blood sugar greater than 400. Therapies have not been ordered at this time. Patient will most likely d/c independently. CM available for any d/c needs that might arise. Date Signed: 12/10/2018 05:18 PM Electronically Signed By:July Gibson LCSW
[2018-12-10] MEDS ORDERED: INSULIN LISPRO 100 UNIT/ML SC SCH (18:00)
--- NOTE | 2018-12-10 18:21 | PDDCSUM ---
Discharge Summary Discharge Summary: Date of Admission: 12/09/2018 Date of Discharge: 12/10/2018 Studies: CXR Discharge Diagnoses: 1. Diabetic ketoacidosis (mild), resolved 2. Type 1 diabetes 3. Nausea, vomiting Brief Hospital Course: 23yo M with T1DM here presented with n/v found to be in mild DKA. He was started on an insulin gtt and given fluids with improvement. He was restarted on his insulin pump once his gap closed and he was eating. However, his pump malfunctioned and he became hyperglycemic and symptomatic again. He was then started on subcutaneous glargine and lispro. His gap remained closed and he was tolerating PO. He was discharged with prescriptions for glargine and lispro insulin with supplies. His parents were coming into town on day of discharge to bring him new insulin pump supplies. I believe his decompensation into DKA was driven by cocaine and alcohol use. I counseled him on the importance of avoiding these to prevent further episodes of DKA. Medications: Please refer to EMR for complete list. Follow Up Plan: 1. He is getting established with an software test technician at the [facility] in [place], [place]
== END 2018-12-10 18:42 | disposition home or self-care (01) ==
LOC: INTOOBSV 19:57 → F2N 21:12
PROVIDERS: ADMIT Student in an Organized Health Care Education/Training Program; ATTEND Internal Medicine
DX: E10.10 Type 1 diabetes mellitus with ketoacidosis without coma (principal)
CPT/HCPCS: 71045; 93005; G0378; 80305; 82435-PO; 82565-PO; 82947-PO; 84132-PO; 84295-PO; 84520-PO; 85014-ER; 96365; G0480; J1815; J2405